=== PATIENT | male | born 1985 | race Caucasian/White ===

== ENCOUNTER → 2017-04-20 | Outpatient (CLI) | payer BC, OTHER ==
--- NOTE | 2017-04-20 12:03 | CT ---
EXAM DESCRIPTION: Abdomen/Pelvis w/Contrast: CT. CLINICAL HISTORY: CHRONIC ULCERATIVE PROCTITIS COMPARISON: None. TECHNIQUE: Spiral-axial scans at 5.0 mm intervals through the abdomen and pelvis, after nonionic IV contrast. No oral contrast. Coronal and sagittal 2.0 mm reconstructions. Delayed scans, liver through the pelvis. Axial-spiral 5mm. No adverse reactions. Total Exam DLP: 774.91 mGy-cm. This exam was performed according to our departmental dose-optimization program which includes automated exposure control, adjustment of the mA and/or kV according to patient size and/or use of iterative reconstruction technique; to reduce radiation dose to as low as reasonably achievable (ALARA). FINDINGS: Lung bases and pleura: Negative. Liver, Stomach, Spleen, Adrenal Glands: Unremarkable. Pancreas, Gallbladder, Ducts: Negative. Kidneys and Ureters: Unremarkable. Mesentery: No free air or free fluid. No stranding or fascial thickening. Aorta: Normal caliber. Small Bowel: Not distended, more gas in the ileum. Terminal Ileum/Cecum: Distended by fecal material but no air-fluid levels. Normal density of the surrounding mesentery. Appendix not seen. Colon: Proximal and mid colon distended by fecal material. Minimal redundancy of the sigmoid colon. Normal mesenteric density. Pelvic Organs: Normal size and enhancement of prostate glands and seminal vesicles. No radiodense stones in the urinary bladder. No free fluid. Spine and Bony Pelvis: Negative. Abdominal Wall/Back Soft Tissues: Negative. IMPRESSION: 1. Constipation cecum and ascending colon, less fecal material in the transverse colon. 2. No free air or fluid. No mesenteric stranding or fascial thickening. No organomegaly. Electronically signed by: Tanner Jeffers MD 04/20/2017 12:02 PM [facility]
== END | disposition home or self-care (01) ==
LOC: CT 08:46
PROVIDERS: ATTEND Family Medicine
DX: K51.50 Left sided colitis without complications (principal)

== ENCOUNTER → 2017-05-19 | Outpatient (CLI) | payer BC | END | disposition home or self-care (01) | LOC: LAB.O 14:02 | PROVIDERS: ATTEND Internal Medicine Gastroenterology | DX: K52.9 Noninfective gastroenteritis and colitis, unspecified (principal); K92.1 Melena; R10.30 Lower abdominal pain, unspecified ==

== ENCOUNTER 2017-06-03 05:49 | Day surgery (SDC) | payer BC ==
[2017-06-03] MEDS ORDERED: LACTATED RINGERS 1,000 ML ONE (06:14)
[2017-06-03] MEDS ORDERED: fentaNYL CITRATE INJ 50 MCG/ML AMP ONE (07:52)
[2017-06-03] MEDS ORDERED: MIDAZOLAM INJ 2 MG/2 ML VIAL ONE (07:52)
--- NOTE | 2017-06-03 09:20 | OP ---
DATE OF PROCEDURE: 06/03/17 PREOPERATIVE DIAGNOSIS: 1. Diarrhea, unspecified. 2. Hematochezia. POSTOPERATIVE DIAGNOSIS: 1. Ulcerative colitis. 2. Colonic polyp. PROCEDURE: 1. Colonoscopy with biopsy. SURGEON: Baltazar Barnes MD ANESTHESIA: Monitored anesthesia care. ESTIMATED BLOOD LOSS: Less than 5 mL. COMPLICATIONS: No immediate complications. PROCEDURE: The patient was placed in the left lateral decubitus position. After deep sedation with monitored anesthesia care was achieved, the Olympus pediatric colonoscope was inserted through the anus into the rectum and advanced to the terminal ileum under direct visualization. The procedure was performed with relative ease. The patient's bowel preparation was good. The cecum was identified by the terminal ileum, ileocecal valve and appendiceal orifice. Photo documentation of these locations was performed. The endoscope was then progressively withdrawn and the total colonic lumen evaluated. Retroflexion was not performed in the rectum. The endoscope was then withdrawn and the procedure terminated. The patient tolerated the procedure well. FINDINGS: Severe colitis characterized by mucosal ulcerations, erythema, edema , friability and loss of vascular pattern was noted from the dentate line extending to 35 cm from the dentate line, involving the rectum and sigmoid colon. Above this, there were a few patches of erythema in the distal descending colon. The colon appeared normal in the proximal descending colon, transverse colon, ascending colon and cecum. Biopsies were taken from the ascending colon, transverse colon, descending colon and the rectosigmoid colon. The terminal ileum was normal, biopsies were taken. One polyp, sessile, 8 mm in size, located in the ascending colon. This polyp was removed with a cold snare and retrieved for pathology. IMPRESSION: 1. Left sided ulcerative colitis. 2. Colonic polyp status post polypectomy. 3. Biopsies were taken from the left side of the colon for ulcerative colitis. 4. Biopsies were taken from the remainder of the colon for surveillance and for diarrhea. 5. Biopsies were taken from the terminal ileum. RECOMMENDATIONS: 1. Await pathology results. 2. Start budesonide 9 mg daily for 6 days, then decrease by 3 mg every 2 weeks until off. 3. Start mesalamine. 4. Followup with me in GI clinic in 4 weeks. #[id number] [facility]
[2017-06-03] MEDS ORDERED: LIDOCAINE 1% 10 ML VIAL INJ ONE (10:00)
[2017-06-03] MEDS ORDERED: PROPOFOL 200 MG/20 ML VIAL IV ONE (10:00)
[2017-06-03 10:39] VITALS: BP 111/71; TEMP 97.7; O2SAT 99
== END 2017-06-03 09:40 | disposition home or self-care (01) ==
LOC: AMB 05:49
PROVIDERS: ATTEND Internal Medicine Gastroenterology
DX: K51.90 Ulcerative colitis, unspecified, without complications (principal); D12.2 Benign neoplasm of ascending colon
CPT/HCPCS: 00811; 45380; 45385; J2250; J3010; J3490; J7120

== ENCOUNTER → 2018-02-08 | Outpatient (CLI) | payer BC | LOC: LAB.O 14:58 | PROVIDERS: ATTEND Internal Medicine Gastroenterology | DX: K51.811 Other ulcerative colitis with rectal bleeding (principal) ==